=== PATIENT | female | born 1970 | race Caucasian/White ===

== ENCOUNTER 2022-04-30 12:20 | Inpatient (IN) | payer BC ==
[2022-04-30] MEDS ORDERED: FAMOTIDINE 20 MG/50 ML IVPB 20 MG/50 ML MG IVPB ONE ×2 (13:08→14:00)
[2022-04-30] MEDS ORDERED: KETOROLAC TROMETHAMINE 15 MG/ML VIAL ONE (13:08)
[2022-04-30] MEDS ORDERED: ONDANSETRON 4 MG TABLET PO ONE (13:19)
[2022-04-30] MEDS ORDERED: ONDANSETRON 4 MG/2 ML VIAL ONE (13:21)
[2022-04-30] MEDS ORDERED: KETOROLAC TROMETHAMINE 15 MG/ML VIAL IVPUSH ONE (14:00)
[2022-04-30 14:06] LABS: ALBUMIN 3.8 g/dl (3.4-5.0); BILIRUBIN,TOTAL 2.2 mg/dl (0.2-1); CREATININE 0.6 mg/dl (0.55-1.3); TOT PROT 6.6 g/dl (6.4-8.2)
[2022-04-30 14:08] LABS: HEMATOCRIT 37.2 % (32.4-45.2); HEMOGLOBIN 13.3 G/dL (10.7-15.3); MCH 33.6 pg (25.7-33.7); MCHC 35.7 g/dl (32.0-36.0); MEAN CELL VOLUME 94.3 fl (80-96); PLATELET COUNT 228.3 10^3/uL (134-434); RBC 3.95 10^6/uL (3.60-5.2); RDW 13.6 % (11.6-15.6); WHITE BLOOD COUNT 8.7 10^3/uL (4.0-10.8)
[2022-04-30] MEDS ORDERED: ACETAMINOPHEN 1000 MG/100 ML BAG IVPB ONE (14:30)
[2022-04-30] MEDS ORDERED: ACETAMINOPHEN INJECTION 100 ML IVPB ONE (14:32)
[2022-04-30] MEDS ORDERED: SODIUM CHLORIDE 1,000 ML IV ONE (16:36)
[2022-04-30] MEDS ORDERED: morphine CARPU-JECT 4 MG/1 ML DISP.SYRIN IVPUSH PRN (17:14)
[2022-05-01] MEDS: SODIUM CHLORIDE 1,000 ML IV SCH ×4 (02:31→18:03)
[2022-05-01 02:39] VITALS: BMI 22.5
[2022-05-01 07:43] LABS: BASO % 0.6 % (0-2.0); EOS % 1.9 % (0-4.5); HEMATOCRIT 37.2 % (32.4-45.2); HEMOGLOBIN 12.1 GM/dL (10.7-15.3); LYMPH % 30.5 % (8-40); MCH 30.9 pg (25.7-33.7); MCHC 32.6 g/dl (32.0-36.0); MEAN CELL VOLUME 94.8 fl (80-96); MEAN PLT VOLUME 8.6 fl (7.5-11.1); MONO % 7.5 % (3.8-10.2); NEUT % 59.5 % (42.8-82.8); PLATELET COUNT 235 10^3/uL (134-434); RBC 3.92 M/mm3 (3.60-5.2); RDW 13.3 % (11.6-15.6); WHITE BLOOD COUNT 3.8 K/mm3 (4.0-10.0)
[2022-05-01 08:10] LABS: ALBUMIN 3.2 g/dl (3.4-5.0); CALCIUM 8.7 mg/dL (8.5-10.1)
[2022-05-01 08:13] LABS: CREATININE 0.6 mg/dL (0.55-1.3); PHOSPHOROUS 4.5 mg/dL (2.5-4.9)
[2022-05-01 08:15] LABS: BILIRUBIN,TOTAL 1.7 mg/dL (0.2-1)
[2022-05-01] MEDS ORDERED: PANTOPRAZOLE SODIUM 40 MG VIAL IVPUSH SCH (10:00)
[2022-05-02] MEDS: SODIUM CHLORIDE 1,000 ML IV SCH ×2 (00:13→09:37)
[2022-05-02 09:11] LABS: BASO % 0.4 % (0-2.0); EOS % 3.6 % (0-4.5); HEMATOCRIT 32.9 % (32.4-45.2); HEMOGLOBIN 10.9 GM/dL (10.7-15.3); LYMPH % 42.1 % (8-40); MCH 31.6 pg (25.7-33.7); MCHC 33.2 g/dl (32.0-36.0); MEAN PLT VOLUME 8.8 fl (7.5-11.1); MONO % 10.4 % (3.8-10.2); NEUT % 43.5 % (42.8-82.8); PLATELET COUNT 212 10^3/uL (134-434); RBC 3.46 M/mm3 (3.60-5.2); WHITE BLOOD COUNT 3.5 K/mm3 (4.0-10.0)
[2022-05-02 09:32] LABS: ALBUMIN 2.8 g/dl (3.4-5.0); BLOOD UREA NITROGEN 11.5 mg/dL (7-18); CALCIUM 8.5 mg/dL (8.5-10.1)
[2022-05-02 09:36] LABS: CREATININE 0.5 mg/dL (0.55-1.3)
[2022-05-02 09:38] LABS: BILIRUBIN,TOTAL 0.8 mg/dL (0.2-1); TOT PROT 5.3 g/dl (6.4-8.2)
[2022-05-02] MEDS ORDERED: PIPERACILLIN/TAZOB 3.375 GM 3.375 GM in DEXTROSE 5%-WATER - 50 ML IVPB SCH (10:00)
[2022-05-02] MEDS: PIPERACILLIN/TAZOB 3.375 GM 3.375 GM in DEXTROSE 5%-WATER - 50 ML IVPB SCH ×2 (11:36→17:56)
[2022-05-02] MEDS ORDERED: LACTATED RINGERS SOLUTION 1,000 ML/1,000 ML INFUS.BAG IV SCH (12:15)
[2022-05-02 15:07] LABS: INR 1.17 (0.83-1.09); PROTHROMBIN TIME (PATIENT) 13.5 SEC (9.7-13.0)
[2022-05-03] MEDS: PIPERACILLIN/TAZOB 3.375 GM 3.375 GM in DEXTROSE 5%-WATER - 50 ML IVPB SCH ×2 (01:11→22:20)
[2022-05-03 08:59] LABS: BILIRUBIN,DIRECT 0.3 mg/dL (0.0-0.2)
[2022-05-03 09:01] LABS: ALBUMIN 3.4 g/dl (3.4-5.0); TOT PROT 6.6 g/dl (6.4-8.2)
[2022-05-03] MEDS ORDERED: BUPIVACAINE HCL/PF 0.25% (2.5MG/ML) 10 ML VIAL ONE (09:05)
[2022-05-03] MEDS ORDERED: LIDOCAINE HCL 2% 100 MG/5 ML DISP.SYRIN ONE (09:36)
[2022-05-03] MEDS ORDERED: PROPOFOL 40 ML ONE (09:38)
[2022-05-03] MEDS ORDERED: MIDAZOLAM HCL 2 MG/2 ML SINGLE DOSE VIAL ONE (09:39)
[2022-05-03] MEDS ORDERED: SUCCINYLCHOLINE CHLORIDE 200 MG/10 ML SYRINGE ONE (09:39)
[2022-05-03] MEDS ORDERED: ROCURONIUM BROMIDE 50 MG/5 ML SYRINGE ONE (09:39)
[2022-05-03] MEDS ORDERED: KETOROLAC TROMETHAMINE 30 MG/1 ML VIAL ONE (10:10)
[2022-05-03] MEDS ORDERED: ONDANSETRON 4 MG/2 ML VIAL ONE ×2 (10:10→12:03)
[2022-05-03] MEDS ORDERED: DEXAMETHASONE SOD PHOSPHATE 4 MG/1 ML VIAL ONE (10:10)
[2022-05-03] MEDS ORDERED: PROMETHAZINE HCL 25 MG/1 ML VIAL IVPUSH PRN ×2 (11:20→11:37)
[2022-05-03] MEDS ORDERED: ONDANSETRON 4 MG/2 ML VIAL IVPUSH PRN ×2 (11:20→11:37)
[2022-05-03] MEDS ORDERED: ACETAMINOPHEN 1000 MG/100 ML BAG IVPB ONE ×2 (11:21→11:37)
[2022-05-03] MEDS ORDERED: METOCLOPRAMIDE HCL INJECTION 10 MG/2 ML VIAL IVPUSH ONE ×2 (11:21→11:37)
[2022-05-03] MEDS ORDERED: LACTATED RINGERS SOLUTION 1,000 ML IV SCH ×2 (11:30→11:37)
[2022-05-03] MEDS ORDERED: LACTATED RINGERS SOLUTION 1,000 ML/1,000 ML INFUS.BAG IV SCH (11:37)
[2022-05-03] MEDS: KETOROLAC TROMETHAMINE 15 MG/ML VIAL IVPUSH PRN ×2 (16:00→22:00)
[2022-05-03] MEDS ORDERED: PIPERACILLIN/TAZOB 3.375 GM 3.375 GM in DEXTROSE 5%-WATER - 50 ML IVPB SCH (18:00)
[2022-05-03] MEDS ORDERED: TRIMETHOBENZAMIDE HCL 200MG/2ML INJ IM PRN (21:51)
[2022-05-04] MEDS: PIPERACILLIN/TAZOB 3.375 GM 3.375 GM in DEXTROSE 5%-WATER - 50 ML IVPB SCH ×2 (03:12→09:55)
[2022-05-04] MEDS: KETOROLAC TROMETHAMINE 15 MG/ML VIAL IVPUSH PRN ×3 (05:49→19:19)
[2022-05-04 09:17] LABS: BASO % 0.3 % (0-2.0); EOS % 3.7 % (0-4.5); HEMATOCRIT 38.3 % (32.4-45.2); HEMOGLOBIN 12.5 GM/dL (10.7-15.3); LYMPH % 24.5 % (8-40); MCHC 32.8 g/dl (32.0-36.0); MEAN CELL VOLUME 94.5 fl (80-96); MEAN PLT VOLUME 9.2 fl (7.5-11.1); MONO % 9.1 % (3.8-10.2); NEUT % 62.4 % (42.8-82.8); PLATELET COUNT 246 10^3/uL (134-434); RBC 4.05 M/mm3 (3.60-5.2); RDW 13.2 % (11.6-15.6); WHITE BLOOD COUNT 7.4 K/mm3 (4.0-10.0)
[2022-05-04 09:43] LABS: CALCIUM 9.3 mg/dL (8.5-10.1)
[2022-05-04 09:44] LABS: ALBUMIN 3.3 g/dl (3.4-5.0); BLOOD UREA NITROGEN 8.6 mg/dL (7-18); MAGNESIUM 1.9 mg/dL (1.8-2.4)
[2022-05-04 09:47] LABS: CREATININE 0.7 mg/dL (0.55-1.3); PHOSPHOROUS 3.8 mg/dL (2.5-4.9)
[2022-05-04 09:52] LABS: TOT PROT 6.2 g/dl (6.4-8.2)
[2022-05-04] MEDS ORDERED: LACTATED RINGERS SOLUTION 1,000 ML/1,000 ML INFUS.BAG IV SCH (10:15)
[2022-05-04 15:10] VITALS: BP 96/63; PULSE 87; RESP 18; TEMP 97.4
== END 2022-05-04 20:00 | disposition home or self-care (01) | DRG 419 ==
LOC: FER 12:20 → J7W 05-01 01:00
PROVIDERS: ADMIT Internal Medicine; ATTEND Internal Medicine
PROC: 0FT44ZZ Resection of Gallbladder, Percutaneous Endoscopic Approach (ICD-10-PCS; principal; 2022-05-03 09:30)
DX: K80.12 Calculus of gallbladder with acute and chronic cholecystitis without obstruction (principal); R74.01 Elevation of levels of liver transaminase levels
CPT/HCPCS: 36415; 74181-TC; 76705-TC; 80053; 80076; 83690; 83735; 84100; 84484; 85025; 85027; 85610; 86705; 86708; 87517; 87522; 88304-TC; 93005; 94760; 97116-GP; 97161-GP; 99285-25; C9803-CS; U0003; U0005